=== PATIENT | male | born 1945 | race Caucasian/White ===

== ENCOUNTER 2016-05-28 09:31 | Outpatient (CLI) | payer MEDICARE ==
[2016-05-28 10:17] LABS: #Basophils 0.1 thou/uL (0.0-0.2); #Eosinphils 0.1 thou/uL (0.0-0.7); #Lymphocytes 1.3 thou/uL (1.20-3.40); #Monocytes 0.7 thou/uL (0.11-0.59); #Neutrophils 4.8 thou/uL (1.40-6.50); %Lymphocytes 18.7 % (21.0-51.0); %Monocytes 10.5 % (0.0-10.0); Hematocrit 48.6 % (42.0-52.0); Mean Platelet Volume 8.3 fL (7.4-10.4); Red Blood Cell (RBC) Count 5.28 mill/uL (4.70-6.10); White Blood Cell (WBC) Count 7.1 thou/uL (4.8-10.8)
[2016-05-28 10:25] LABS: ALT (SGPT) 14 U/L (0-55); AST (SGOT) 15 U/L (5-34); Alkaline Phosphatase 76 U/L (40-150); Anion Gap 16 mmol/L (10-20); BUN (Urea Nitrogen) 24 mg/dL (8.4-25.7); Bilirubin, Total 0.9 mg/dL (0.2-1.2); Calc. Creatinine Clearance 0 mL/min (70-130); Calcium 9.3 mg/dL (7.8-10.44); Carbon Dioxide 23 mmol/L (23-31); Chloride 106 mmol/L (98-107); Estimated GFR-MDRD 57; Globulin 2.9 g/dL (2.4-3.5); Protein, Total 7.2 g/dL (5.8-8.1)
[2016-05-28 11:13] LABS: Hemoglobin A1c 5.7 % (4.0-6.0)
[2016-05-28 16:48] LABS: Sex Hormone Binding Globulin 36.4 nmol/L (11-78); Testosterone, Total 500.7 ng/dL (221-716)
== END 2016-05-28 09:32 | disposition home or self-care (01) ==
LOC: NAV LAB 09:31
PROVIDERS: ATTEND Internal Medicine Endocrinology, Diabetes & Metabolism
DX: E03.9 Hypothyroidism, unspecified (principal); E55.9 Vitamin D deficiency, unspecified; E78.2 Mixed hyperlipidemia; E29.1 Testicular hypofunction; E11.9 Type 2 diabetes mellitus without complications
CPT/HCPCS: 80053; 82306; 82672; 83036; 84270; 84403; 84439; 84443; 85025

== ENCOUNTER 2016-09-30 10:20 | Outpatient (CLI) | payer MEDICARE ==
[2016-09-30 11:25] LABS: Hemoglobin A1c 5.8 % (4.0-6.0)
[2016-09-30 11:26] LABS: ALT (SGPT) 8 U/L (8-55); AST (SGOT) 15 U/L (5-34); Albumin 4.1 g/dL (3.4-4.8); Alkaline Phosphatase 77 U/L (40-150); Anion Gap 13 mmol/L (10-20); BUN (Urea Nitrogen) 22 mg/dL (8.4-25.7); Bilirubin, Total 1.1 mg/dL (0.2-1.2); Calc. Creatinine Clearance 0 mL/min (70-130); Calcium 9.5 mg/dL (7.8-10.44); Carbon Dioxide 26 mmol/L (23-31); Cardiac Risk 2.7 (Less than 4.5); Chloride 104 mmol/L (98-107); Cholesterol 90 mg/dl (< 200 Desired); Estimated GFR-MDRD 53; Globulin 3.1 g/dL (2.4-3.5); Glucose 108 mg/dL (83-110); HDL Cholesterol 33 mg/dL (>60 Neg Risk); LDL Cholesterol, Calculated 44 mg/dL; Potassium 4.8 mmol/L (3.5-5.1); Protein, Total 7.2 g/dL (5.8-8.1); Sodium 138 mmol/L (136-145); Triglycerides 64 mg/dL (Less than 150)
[2016-09-30 12:22] LABS: Free T4 (Free Thyroxine) 1.14 ng/dL (0.70-1.48); Thyroid Stimulating Hormone 1.6012 uIU/mL (0.35-4.94); Vitamin D, 25 Hydroxy 44.9 ng/ml (> 30.0)
[2016-09-30 17:30] LABS: Creatinine, Urine 117.71 mg/dL (63-166); Microalbumin Urine 2.3 mg/dL (0.5-50.0); Microalbumin/Creat Ratio 19.5 mg/g (Less than 30)
[2016-09-30 17:33] LABS: Albumin (w/Testosterone Panel) 4.1 g/dL
[2016-09-30 17:59] LABS: Sex Hormone Binding Globulin 32.1 nmol/L (11-78); Testosterone, Free 117.7 pg/mL (47-244); Testosterone, Total 532.1 ng/dL (221-716)
== END 2016-09-30 10:21 | disposition home or self-care (01) ==
LOC: NAV LAB 10:20
PROVIDERS: ATTEND Internal Medicine Endocrinology, Diabetes & Metabolism
DX: E03.9 Hypothyroidism, unspecified (principal); E11.9 Type 2 diabetes mellitus without complications; E78.2 Mixed hyperlipidemia; E29.1 Testicular hypofunction; E55.9 Vitamin D deficiency, unspecified
CPT/HCPCS: 36415; 80053; 80061; 82043; 82306; 82672; 83036; 84270; 84403; 84439; 84443

== ENCOUNTER 2017-05-28 18:48 | Emergency (ER) | payer MEDICARE ==
[2017-05-28] MEDS ORDERED: Famotidine/PF 20 mg/2ml Vial ONE (19:29)
[2017-05-28] MEDS ORDERED: Ondansetron HCl/PF 4 MG/2 ML Vial ONE (19:29)
[2017-05-28 19:40] LABS: #Basophils 0.1 thou/uL (0.0-0.2); #Eosinphils 0.3 thou/uL (0.0-0.7); #Lymphocytes 1.1 thou/uL (1.20-3.40); #Monocytes 0.8 thou/uL (0.11-0.59); %Basophils 1.2 % (0.0-1.0); %Eosinophils 2.8 % (0.0-10.0); %Lymphocytes 11.8 % (21.0-51.0); %Monocytes 9.1 % (0.0-10.0); %Neutrophils 75.2 % (42.0-75.0); Hemoglobin 13.9 g/dL (14.0-18.0); Mean Corpuscular HGB CONC 32.3 g/dL (32.0-36.0); Mean Corpuscular Volume 86.9 fl (80.0-94.0); Mean Platelet Volume 10.6 fL (7.4-10.4); Platelet Count 153 thou/uL (130-400); RBC Distribution Width 12.2 % (11.5-14.5); Red Blood Cell (RBC) Count 4.95 mill/uL (4.70-6.10); White Blood Cell (WBC) Count 9.3 thou/uL (4.8-10.8)
[2017-05-28 19:55] LABS: Anion Gap 16 mmol/L (10-20); BUN (Urea Nitrogen) 23 mg/dL (8.4-25.7); Calc. Creatinine Clearance 0 mL/min (70-130); Calcium 9.1 mg/dL (7.8-10.44); Carbon Dioxide 22 mmol/L (23-31); Chloride 104 mmol/L (98-107); Estimated GFR-MDRD 61; Glucose 140 mg/dL (83-110); Potassium 4.6 mmol/L (3.5-5.1); Sodium 137 mmol/L (136-145)
[2017-05-28 19:56] LABS: CKMB 0.9 ng/mL (0-6.6); Troponin I 0.016 ng/mL (< 0.028)
[2017-05-28 20:11] LABS: Bilirubin Negative (Negative); Blood, Urine Trace (Negative); Clarity Clear (Clear); Glucose, Urine (Dipstick) Negative (Negative); Leukocyte Negative (Negative); Nitrite Negative (Negative); Protein, Urine (Dipstick) 100 mg/dL (Neg-Trace); Specific Gravity, Urine 1.025 (1.005-1.030); Urobilinogen 0.2 mg/dL (0.2-1.0); pH, Urine 5.5 (5.0-9.0)
[2017-05-28] MEDS ORDERED: Lidocaine Viscous Sol 2% 15 ml UD Cup ONE (20:11)
[2017-05-28] MEDS ORDERED: Mag-Al Plus 1200 MG/1200 MG/120 MG/30 ML UDCUP ONE (20:11)
--- NOTE | 2017-05-28 20:13 | RAD ---
PORTABLE AP CHEST RADIOGRAPH: History: Generalized weakness, dyspnea. Upset stomach for several weeks. Comparison: 11-24-09 FINDINGS: Dual-lead left subclavian AICD device remains in place. There have been interval post-surgical change s with evidence of CABG on today's exam. Cardiac silhouette is magnified by projection. Pulmonary vas culature also is accentuated by the depth of inspiration and portable technique. There is mild elevat ion of the right hemidiaphragm. Lungs are otherwise clear. There is mild widening of the right acromi oclavicular joint space and distal right clavicle is slightly elevated superiorly. This could be rela sharif to acromioclavicular injury of indeterminate age. IMPRESSION: 1. No acute cardiopulmonary process. 2. Mild elevation of the right hemidiaphragm. 3. Findings likely related to acromioclavicular joint separation of unknown time frame. POS: [facility]
[2017-05-28 20:25] LABS: RBC/HPF 0-3 HPF (0-3); Squamous Epithelial 0-3 HPF (0-3)
== END 2017-05-28 21:00 | disposition home or self-care (01) ==
LOC: NAV ERS 18:48
DX: R53.1 Weakness (principal); I25.10 Atherosclerotic heart disease of native coronary artery without angina pectoris; I25.2 Old myocardial infarction; E11.9 Type 2 diabetes mellitus without complications; E03.9 Hypothyroidism, unspecified; K21.9 Gastro-esophageal reflux disease without esophagitis; E78.2 Mixed hyperlipidemia; I10 Essential (primary) hypertension; J45.909 Unspecified asthma, uncomplicated; Z79.02 Long term (current) use of antithrombotics/antiplatelets; Z79.899 Other long term (current) drug therapy
CPT/HCPCS: 36416; 71045; 80048; 81003; 81015; 82553; 83605; 83880; 84484; 85025; 85379; 93005; 96374; 96375; 36415-59; J2405; S0028

== ENCOUNTER 2019-05-28 14:33 | Emergency (ER) | payer MEDICARE ==
[2019-05-28] MEDS ORDERED: cefTRIAXone\\ROCEPHIN 2 GM VIAL ONE (15:08)
[2019-05-28] MEDS ORDERED: Sodium Chloride 0.9% 2,000 ML ONE (15:08)
[2019-05-28] MEDS ORDERED: Sodium Chloride 0.9% 100 ML ONE (15:08)
[2019-05-28 15:13] LABS: #Basophils 0.1 thou/uL (0.0-0.2); #Lymphocytes 0.4 thou/uL (1.20-3.40); #Monocytes 0.7 thou/uL (0.11-0.59); #Neutrophils 5.9 thou/uL (1.40-6.50); %Basophils 0.9 % (0.0-1.0); %Eosinophils 0.2 % (0.0-10.0); %Lymphocytes 6.3 % (21.0-51.0); %Monocytes 9.5 % (0.0-10.0); %Neutrophils 83.1 % (42.0-75.0); Mean Corpuscular HGB CONC 31.7 g/dL (32.0-36.0); Mean Corpuscular Hemoglobin 29.7 pg (27.0-31.0); Mean Corpuscular Volume 93.5 fL (78.0-98.0); Mean Platelet Volume 9.2 fL (7.4-10.4); Platelet Count 160 thou/uL (130-400); RBC Distribution Width 12.9 % (11.5-14.5); Red Blood Cell (RBC) Count 4.37 mill/uL (4.70-6.10); White Blood Cell (WBC) Count 7.1 thou/uL (4.8-10.8)
[2019-05-28 15:25] LABS: ALT (SGPT) 10 U/L (8-55); AST (SGOT) 26 U/L (5-34); Albumin 4.1 g/dL (3.4-4.8); Alkaline Phosphatase 111 U/L (40-110); Anion Gap 18 mmol/L (10-20); BUN (Urea Nitrogen) 18 mg/dL (8.4-25.7); Calc. Creatinine Clearance 0 mL/min (70-130); Calcium 8.9 mg/dL (7.8-10.44); Carbon Dioxide 25 mmol/L (23-31); Chloride 101 mmol/L (98-107); Estimated GFR-MDRD 59; Globulin 3.2 g/dL (2.4-3.5); Glucose 166 mg/dL (83-110); Potassium 4.9 mmol/L (3.5-5.1); Protein, Total 7.3 g/dL (5.8-8.1); Sodium 139 mmol/L (136-145)
--- NOTE | 2019-05-28 15:30 | RAD ---
CHEST ONE VIEW: 05/28/19 HISTORY: Fever and cough. COMPARISON: 05/07/17 FINDINGS: Heart size is enlarged. Lungs are hypoinflated. There is vascular crowding. Atelectatic changes of terese th lung bases. AICD/pacer is similar. Multiple midline sternotomy wires. IMPRESSION: Similar exam. No evidence for pneumonia. POS: [facility]
--- NOTE | 2019-05-28 15:32 | RAD ---
XR Hip Rt 2-3 View INDICATION: Right hip pain after fall COMPARISON: None FINDINGS: Bones: No acute osseous abnormality. Bone mineralization appears within normal limits. 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 Surrounding soft tissues: There is mild vascular calcification involving the right hip soft tissues IMPRESSION: 1. No acute osseous abnormality.
[2019-05-28 15:45] LABS: CKMB 0.4 ng/mL (0-6.6)
[2019-05-28] MEDS ORDERED: Azithromycin 500 MG VIAL ONE (15:45)
[2019-05-28] MEDS ORDERED: Sodium Chloride 0.9% 250 ML 250 ML ONE (15:45)
--- NOTE | 2019-05-28 15:56 | CT ---
CT BRAIN WITHOUT CONTRAST: 05/28/19 HISTORY: Fall. 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 There are changes of chronic small vessel ische bert disease in the periventricular white matter. The ventricular size is appropriate and the basilar cisterns patent. Dural calcifications are present. No evidence of acute hemorrhage, midline shift, or abnormal extra-axial fluid collections are noted. The bony calvarium is intact. The visualized paranasal sinuses and mastoid air cells are well aerated . IMPRESSION: No CT evidence of acute intracranial process. POS: [facility]
[2019-05-28] MEDS ORDERED: Acetaminophen 500 MG TAB ONE (16:12)
[2019-05-28] MEDS ORDERED: Oseltamivir 6 MG/ML ORAL SUSP ONE (16:22)
[2019-05-28 17:13] LABS: Bilirubin Negative (Negative); Blood, Urine Moderate (Negative); Glucose, Urine (Dipstick) Negative (Negative); Leukocyte Negative (Negative); Nitrite Negative (Negative); Protein, Urine (Dipstick) 100 mg/dL (Neg-Trace); Urobilinogen 0.2 mg/dL (Less than 2)
[2019-05-28 17:21] LABS: Clarity SL HAZY (Clear)
[2019-05-28 17:23] LABS: Squamous Epithelial 0-3 HPF (0-3); WBC/HPF 0-3 HPF (0-3)
== END 2019-05-28 17:12 | disposition short-term general hospital (02) ==
LOC: NAV ERS 14:33
DX: J10.1 Influenza due to other identified influenza virus with other respiratory manifestations (principal); I11.0 Hypertensive heart disease with heart failure; I50.9 Heart failure, unspecified; G20 Parkinson's disease; R79.89 Other specified abnormal findings of blood chemistry; E78.2 Mixed hyperlipidemia; K21.9 Gastro-esophageal reflux disease without esophagitis; J45.909 Unspecified asthma, uncomplicated; F41.9 Anxiety disorder, unspecified; F32.9 Major depressive disorder, single episode, unspecified; G62.9 Polyneuropathy, unspecified; E03.9 Hypothyroidism, unspecified; E11.9 Type 2 diabetes mellitus without complications; Z87.891 Personal history of nicotine dependence
CPT/HCPCS: 36415; 51701; 70450; 71045; 80053; 81003; 81015; 82553; 83605; 83880; 84484; 85025; 87040; 87086; 87804; 96360; 96361; 96365; 96375; J0456; J0696; J3490; J7050

== ENCOUNTER 2019-07-16 16:55 | Outpatient (CLI) | payer MEDICARE ==
--- NOTE | 2019-07-16 17:55 | RAD ---
THREE VIEWS OF THE LUMBAR SPINE: 07/16/19 COMPARISON: None. HISTORY: Low back pain. FINDINGS: Pedicles appear intact on the frontal imaging. The lateral exam is limited by rotation. No obvious fr acture. No anterolisthesis or retrolisthesis. There is atherosclerotic calcification of the abdomina l aorta. IMPRESSION: No acute osseous abnormality. Please note that the study is significantly limited secondary to rotati on on the lateral view. POS: [facility]
== END 2019-07-16 16:56 | disposition home or self-care (01) ==
LOC: NAV RAD 16:55
PROVIDERS: ATTEND Family Medicine
DX: M54.5 Low back pain (principal)
CPT/HCPCS: 72100

== ENCOUNTER 2020-07-09 21:37 | Inpatient (IN) | payer MEDICARE ==
[2020-07-09 23:05] VITALS: BMI 26.9
[2020-07-09] MEDS ORDERED: Albuterol 200 PUFF (6.7GM INHALER) INH PRN (23:05)
[2020-07-09] MEDS ORDERED: HumaLOG 300 UNITS/3 ML VIAL SC PRN (23:15)
[2020-07-09] MEDS ORDERED: Dextrose 5% in Water 1,000 ML IV PRN (23:15)
[2020-07-09] MEDS ORDERED: Dextrose 50% Abboject 50 ML SYRINGE IVP PRN (23:15)
[2020-07-10] MEDS: Levothyroxine Sodium 75 MCG TAB PO SCH (05:17)
[2020-07-10 05:50] LABS: Anion Gap 13 mmol/L (10-20); BUN (Urea Nitrogen) 27 mg/dL (8.4-25.7); Calc. Creatinine Clearance 55 mL/min (70-130); Calcium 8.5 mg/dL (7.8-10.44); Carbon Dioxide 30 mmol/L (23-31); Chloride 99 mmol/L (98-107); Glucose 190 mg/dL (83-110); Potassium 3.5 mmol/L (3.5-5.1); Sodium 138 mmol/L (136-145)
[2020-07-10 05:52] LABS: #Basophils 0.1 thou/uL (0.0-0.2); #Lymphocytes 1.4 thou/uL (1.20-3.40); #Monocytes 0.8 thou/uL (0.11-0.59); #Neutrophils 4.4 thou/uL (1.40-6.50); %Basophils 1.9 % (0.0-1.0); %Eosinophils 0.2 % (0.0-10.0); %Lymphocytes 20.6 % (21.0-51.0); %Monocytes 11.3 % (0.0-10.0); Anisocytosis SLIGHT = 6-15 cells (100X) (0-5/hpf); Hemoglobin 15.2 g/dL (14.0-18.0); Hypochromia SLIGHT = 6-15 cells (100X) (0-5/hpf); MDiff Complete? YES; Macrocytosis SLIGHT = 6-15 cells (100X) (0-5/hpf); Mean Corpuscular HGB CONC 28.6 g/dL (32.0-36.0); Mean Corpuscular Hemoglobin 27.4 pg (27.0-31.0); Mean Corpuscular Volume 95.5 fL (78.0-98.0); Mean Platelet Volume 9.9 fL (7.4-10.4); Platelet Count 151 thou/uL (130-400); Platelet Morphology Comment Appears Adequate; Polychromasia SLIGHT = 2-3 cells (100X) (0-2/hpf); RBC Distribution Width 14.2 % (11.5-14.5); Red Blood Cell (RBC) Count 5.55 mill/uL (4.70-6.10); White Blood Cell (WBC) Count 6.6 thou/uL (4.8-10.8)
[2020-07-10] MEDS ORDERED: Lisinopril 5 MG TAB PO SCH (09:00)
[2020-07-10] MEDS: metFORMIN 500 MG TAB PO SCH ×2 (10:12→21:56)
[2020-07-10] MEDS: Carbidopa/Levodopa 25-100 mg Tablet PO SCH ×3 (10:13→21:56)
[2020-07-10] MEDS: Carvedilol 6.25 MG TAB PO SCH ×2 (10:13→21:55)
[2020-07-10] MEDS: Mometasone/Formoterol 60 PUFF AER INH SCH ×2 (10:52→21:57)
[2020-07-10] MEDS: Loratadine 10 MG TAB PO SCH (12:15)
[2020-07-10] MEDS: Rosuvastatin 10 MG TAB PO SCH (12:16)
[2020-07-10] MEDS: Torsemide 20 MG TAB PO SCH (12:16)
[2020-07-10] MEDS: Aspirin 81 mg Enteric Coated Tablet PO SCH (12:16)
[2020-07-10] MEDS: Alogliptin 6.25 MG TAB PO SCH ×2 (12:16→21:55)
[2020-07-10] MEDS: Primidone 50 MG TAB PO SCH (12:17)
[2020-07-10] MEDS: Clopidogrel Bisulfate 75 MG TAB PO SCH (12:18)
[2020-07-10] MEDS: HumaLOG 300 UNITS/3 ML VIAL SC PRN ×2 (12:19→17:40)
[2020-07-10] MEDS: Saccharomyces boulardii 250 MG CAP PO SCH (12:19)
[2020-07-10] MEDS: Sacubitril 49 MG/Valsartan 51 MG TABLET PO SCH (21:57)
[2020-07-11] MEDS: Levothyroxine Sodium 75 MCG TAB PO SCH (05:18)
[2020-07-11] MEDS: Primidone 50 MG TAB PO SCH (08:35)
[2020-07-11] MEDS: metFORMIN 500 MG TAB PO SCH ×2 (08:36→21:14)
[2020-07-11] MEDS: Saccharomyces boulardii 250 MG CAP PO SCH (08:36)
[2020-07-11] MEDS: Clopidogrel Bisulfate 75 MG TAB PO SCH (08:36)
[2020-07-11] MEDS: Loratadine 10 MG TAB PO SCH (08:37)
[2020-07-11] MEDS: Sacubitril 49 MG/Valsartan 51 MG TABLET PO SCH ×2 (08:37→21:16)
[2020-07-11] MEDS: Rosuvastatin 10 MG TAB PO SCH (08:37)
[2020-07-11] MEDS: Alogliptin 6.25 MG TAB PO SCH ×2 (08:37→21:14)
[2020-07-11] MEDS: Carbidopa/Levodopa 25-100 mg Tablet PO SCH ×3 (08:37→21:15)
[2020-07-11] MEDS: Torsemide 20 MG TAB PO SCH (08:38)
[2020-07-11] MEDS: Mometasone/Formoterol 60 PUFF AER INH SCH ×2 (08:38→21:15)
[2020-07-11] MEDS: Aspirin 81 mg Enteric Coated Tablet PO SCH (08:38)
[2020-07-11] MEDS: Carvedilol 6.25 MG TAB PO SCH ×2 (08:39→21:15)
[2020-07-11] MEDS: HumaLOG 300 UNITS/3 ML VIAL SC PRN ×2 (12:21→17:12)
[2020-07-12] MEDS: Levothyroxine Sodium 75 MCG TAB PO SCH (05:32)
[2020-07-12 07:55] LABS: #Basophils 0.1 thou/uL (0.0-0.2); #Lymphocytes 1.4 thou/uL (1.20-3.40); #Monocytes 0.8 thou/uL (0.11-0.59); #Neutrophils 4.8 thou/uL (1.40-6.50); %Basophils 1.4 % (0.0-1.0); %Eosinophils 0.3 % (0.0-10.0); %Lymphocytes 19.7 % (21.0-51.0); %Monocytes 11.3 % (0.0-10.0); %Neutrophils 67.3 % (42.0-75.0); Hemoglobin 14.5 g/dL (14.0-18.0); Mean Corpuscular HGB CONC 29.2 g/dL (32.0-36.0); Mean Corpuscular Hemoglobin 27.6 pg (27.0-31.0); Mean Corpuscular Volume 94.4 fL (78.0-98.0); Mean Platelet Volume 8.5 fL (7.4-10.4); Platelet Count 134 thou/uL (130-400); RBC Distribution Width 13.8 % (11.5-14.5); Red Blood Cell (RBC) Count 5.24 mill/uL (4.70-6.10); White Blood Cell (WBC) Count 7.1 thou/uL (4.8-10.8)
[2020-07-12 08:13] LABS: ALT (SGPT) 35 U/L (8-55); AST (SGOT) 24 U/L (5-34); Albumin 2.9 g/dL (3.4-4.8); Alkaline Phosphatase 121 U/L (40-110); Anion Gap 13 mmol/L (10-20); BUN (Urea Nitrogen) 20 mg/dL (8.4-25.7); Bilirubin, Total 0.9 mg/dL (0.2-1.2); Calc. Creatinine Clearance 63 mL/min (70-130); Calcium 8.2 mg/dL (7.8-10.44); Carbon Dioxide 28 mmol/L (23-31); Chloride 98 mmol/L (98-107); Glucose 134 mg/dL (83-110); Potassium 3.4 mmol/L (3.5-5.1); Protein, Total 5.9 g/dL (5.8-8.1); Sodium 136 mmol/L (136-145)
[2020-07-12] MEDS: metFORMIN 500 MG TAB PO SCH ×2 (08:58→21:38)
[2020-07-12] MEDS: Saccharomyces boulardii 250 MG CAP PO SCH (09:01)
[2020-07-12] MEDS: Aspirin 81 mg Enteric Coated Tablet PO SCH (09:01)
[2020-07-12] MEDS: Loratadine 10 MG TAB PO SCH (09:01)
[2020-07-12] MEDS: Torsemide 20 MG TAB PO SCH (09:01)
[2020-07-12] MEDS: Alogliptin 6.25 MG TAB PO SCH ×2 (09:01→21:37)
[2020-07-12] MEDS: Rosuvastatin 10 MG TAB PO SCH (09:01)
[2020-07-12] MEDS: Primidone 50 MG TAB PO SCH (09:02)
[2020-07-12] MEDS: Carbidopa/Levodopa 25-100 mg Tablet PO SCH ×3 (09:02→21:37)
[2020-07-12] MEDS: Clopidogrel Bisulfate 75 MG TAB PO SCH (09:02)
[2020-07-12] MEDS: Mometasone/Formoterol 60 PUFF AER INH SCH ×2 (09:03→21:38)
[2020-07-12] MEDS: Carvedilol 6.25 MG TAB PO SCH ×2 (09:03→21:38)
[2020-07-12] MEDS: Sacubitril 49 MG/Valsartan 51 MG TABLET PO SCH ×2 (09:04→21:39)
[2020-07-12] MEDS: HumaLOG 300 UNITS/3 ML VIAL SC PRN ×2 (12:38→17:51)
[2020-07-13] MEDS: Levothyroxine Sodium 75 MCG TAB PO SCH (05:36)
[2020-07-13] MEDS: Mometasone/Formoterol 60 PUFF AER INH SCH ×2 (08:55→20:27)
[2020-07-13] MEDS: metFORMIN 500 MG TAB PO SCH ×2 (08:58→20:28)
[2020-07-13] MEDS: Carbidopa/Levodopa 25-100 mg Tablet PO SCH ×3 (08:59→20:29)
[2020-07-13] MEDS: Alogliptin 6.25 MG TAB PO SCH ×2 (08:59→20:29)
[2020-07-13] MEDS: Carvedilol 6.25 MG TAB PO SCH ×2 (08:59→20:25)
[2020-07-13] MEDS: Aspirin 81 mg Enteric Coated Tablet PO SCH (08:59)
[2020-07-13] MEDS ORDERED: Spironolactone 25 MG TAB PO SCH (09:00)
[2020-07-13] MEDS: Clopidogrel Bisulfate 75 MG TAB PO SCH (09:00)
[2020-07-13] MEDS: Loratadine 10 MG TAB PO SCH (09:01)
[2020-07-13] MEDS: Primidone 50 MG TAB PO SCH (09:01)
[2020-07-13] MEDS: Rosuvastatin 10 MG TAB PO SCH (09:02)
[2020-07-13] MEDS: Saccharomyces boulardii 250 MG CAP PO SCH (09:02)
[2020-07-13] MEDS: Sacubitril 49 MG/Valsartan 51 MG TABLET PO SCH ×2 (09:02→20:26)
[2020-07-13] MEDS: Torsemide 20 MG TAB PO SCH (09:03)
[2020-07-13] MEDS: HumaLOG 300 UNITS/3 ML VIAL SC PRN (12:04)
[2020-07-14] MEDS: Levothyroxine Sodium 75 MCG TAB PO SCH (05:50)
[2020-07-14] MEDS: Saccharomyces boulardii 250 MG CAP PO SCH (09:21)
[2020-07-14] MEDS: Primidone 50 MG TAB PO SCH (09:21)
[2020-07-14] MEDS: Mometasone/Formoterol 60 PUFF AER INH SCH ×2 (09:22→20:49)
[2020-07-14] MEDS: Rosuvastatin 10 MG TAB PO SCH (09:22)
[2020-07-14] MEDS: metFORMIN 500 MG TAB PO SCH ×2 (09:23→20:49)
[2020-07-14] MEDS: Aspirin 81 mg Enteric Coated Tablet PO SCH (09:23)
[2020-07-14] MEDS: Alogliptin 6.25 MG TAB PO SCH ×2 (09:23→20:48)
[2020-07-14] MEDS: Carvedilol 6.25 MG TAB PO SCH ×2 (09:24→20:47)
[2020-07-14] MEDS: Carbidopa/Levodopa 25-100 mg Tablet PO SCH ×3 (09:24→20:46)
[2020-07-14] MEDS: Clopidogrel Bisulfate 75 MG TAB PO SCH (09:28)
[2020-07-14] MEDS: Loratadine 10 MG TAB PO SCH (09:29)
[2020-07-14] MEDS: Sacubitril 49 MG/Valsartan 51 MG TABLET PO SCH ×2 (09:30→20:47)
[2020-07-14] MEDS: Torsemide 20 MG TAB PO SCH (09:31)
[2020-07-14] MEDS: HumaLOG 300 UNITS/3 ML VIAL SC PRN (17:54)
[2020-07-15] MEDS: Levothyroxine Sodium 75 MCG TAB PO SCH (05:55)
[2020-07-15] MEDS: Primidone 50 MG TAB PO SCH (10:11)
[2020-07-15] MEDS: Saccharomyces boulardii 250 MG CAP PO SCH (10:13)
[2020-07-15] MEDS: Carvedilol 6.25 MG TAB PO SCH ×2 (10:13→20:42)
[2020-07-15] MEDS: Clopidogrel Bisulfate 75 MG TAB PO SCH (10:13)
[2020-07-15] MEDS: Carbidopa/Levodopa 25-100 mg Tablet PO SCH ×3 (10:13→20:46)
[2020-07-15] MEDS: Loratadine 10 MG TAB PO SCH (10:14)
[2020-07-15] MEDS: Sacubitril 49 MG/Valsartan 51 MG TABLET PO SCH ×2 (10:14→20:47)
[2020-07-15] MEDS: Aspirin 81 mg Enteric Coated Tablet PO SCH (10:14)
[2020-07-15] MEDS: Torsemide 20 MG TAB PO SCH (10:15)
[2020-07-15] MEDS: metFORMIN 500 MG TAB PO SCH ×2 (10:16→20:44)
[2020-07-15] MEDS: Rosuvastatin 10 MG TAB PO SCH (10:16)
[2020-07-15] MEDS: Alogliptin 6.25 MG TAB PO SCH ×2 (10:16→20:45)
[2020-07-15] MEDS: Mometasone/Formoterol 60 PUFF AER INH SCH ×2 (10:17→20:51)
[2020-07-15] MEDS: HumaLOG 300 UNITS/3 ML VIAL SC PRN (17:57)
[2020-07-15] MEDS: Apixaban 5 MG TAB PO SCH (20:49)
[2020-07-16] MEDS: Levothyroxine Sodium 75 MCG TAB PO SCH (06:00)
[2020-07-16] MEDS: metFORMIN 500 MG TAB PO SCH ×2 (08:54→20:49)
[2020-07-16] MEDS: Alogliptin 6.25 MG TAB PO SCH ×2 (08:55→20:48)
[2020-07-16] MEDS: Primidone 50 MG TAB PO SCH (08:55)
[2020-07-16] MEDS: Clopidogrel Bisulfate 75 MG TAB PO SCH (08:56)
[2020-07-16] MEDS: Loratadine 10 MG TAB PO SCH (08:56)
[2020-07-16] MEDS: Apixaban 5 MG TAB PO SCH ×2 (08:56→20:48)
[2020-07-16] MEDS: Carvedilol 6.25 MG TAB PO SCH ×2 (08:59→20:49)
[2020-07-16] MEDS: Rosuvastatin 10 MG TAB PO SCH (08:59)
[2020-07-16] MEDS: Torsemide 20 MG TAB PO SCH (09:01)
[2020-07-16] MEDS: Carbidopa/Levodopa 25-100 mg Tablet PO SCH ×3 (09:03→20:49)
[2020-07-16] MEDS: Saccharomyces boulardii 250 MG CAP PO SCH (09:04)
[2020-07-16] MEDS: Sacubitril 49 MG/Valsartan 51 MG TABLET PO SCH ×2 (09:04→20:50)
[2020-07-16] MEDS: Mometasone/Formoterol 60 PUFF AER INH SCH ×2 (09:05→20:49)
[2020-07-16] MEDS: Aspirin 81 mg Enteric Coated Tablet PO SCH (09:05)
[2020-07-16] MEDS: HumaLOG 300 UNITS/3 ML VIAL SC PRN (12:15)
[2020-07-17] MEDS: Levothyroxine Sodium 75 MCG TAB PO SCH (05:20)
[2020-07-17 06:32] LABS: Anion Gap 15 mmol/L (10-20); BUN (Urea Nitrogen) 14 mg/dL (8.4-25.7); Calc. Creatinine Clearance 70 mL/min (70-130); Calcium 8.2 mg/dL (7.8-10.44); Carbon Dioxide 26 mmol/L (23-31); Chloride 100 mmol/L (98-107); Glucose 106 mg/dL (83-110); Potassium 3.7 mmol/L (3.5-5.1); Sodium 137 mmol/L (136-145)
[2020-07-17 06:59] LABS: #Basophils 0.1 thou/uL (0.0-0.2); #Lymphocytes 1.3 thou/uL (1.20-3.40); #Monocytes 0.6 thou/uL (0.11-0.59); #Neutrophils 4.1 thou/uL (1.40-6.50); %Basophils 1.7 % (0.0-1.0); %Eosinophils 0.2 % (0.0-10.0); %Lymphocytes 21.7 % (21.0-51.0); %Monocytes 10.2 % (0.0-10.0); %Neutrophils 66.1 % (42.0-75.0); Hemoglobin 14.1 g/dL (14.0-18.0); Mean Corpuscular HGB CONC 28.6 g/dL (32.0-36.0); Mean Corpuscular Hemoglobin 26.8 pg (27.0-31.0); Mean Corpuscular Volume 93.6 fL (78.0-98.0); Mean Platelet Volume 9.1 fL (7.4-10.4); Platelet Count 109 thou/uL (130-400); RBC Distribution Width 14.4 % (11.5-14.5); Red Blood Cell (RBC) Count 5.27 mill/uL (4.70-6.10); White Blood Cell (WBC) Count 6.2 thou/uL (4.8-10.8)
[2020-07-17] MEDS: Alogliptin 6.25 MG TAB PO SCH ×2 (08:04→20:51)
[2020-07-17] MEDS: metFORMIN 500 MG TAB PO SCH ×2 (08:04→20:51)
[2020-07-17] MEDS: Loratadine 10 MG TAB PO SCH (08:05)
[2020-07-17] MEDS: Saccharomyces boulardii 250 MG CAP PO SCH (08:05)
[2020-07-17] MEDS: Aspirin 81 mg Enteric Coated Tablet PO SCH (08:05)
[2020-07-17] MEDS: Rosuvastatin 10 MG TAB PO SCH (08:05)
[2020-07-17] MEDS: Torsemide 20 MG TAB PO SCH (08:06)
[2020-07-17] MEDS: Primidone 50 MG TAB PO SCH (08:07)
[2020-07-17] MEDS: Carbidopa/Levodopa 25-100 mg Tablet PO SCH ×3 (08:21→20:52)
[2020-07-17] MEDS: Carvedilol 6.25 MG TAB PO SCH ×2 (08:26→20:52)
[2020-07-17] MEDS: Sacubitril 49 MG/Valsartan 51 MG TABLET PO SCH ×2 (08:27→20:53)
[2020-07-17] MEDS: Apixaban 5 MG TAB PO SCH ×2 (08:27→20:51)
[2020-07-17] MEDS: Mometasone/Formoterol 60 PUFF AER INH SCH ×2 (08:29→20:53)
[2020-07-17] MEDS: Clopidogrel Bisulfate 75 MG TAB PO SCH (08:29)
[2020-07-17] MEDS: HumaLOG 300 UNITS/3 ML VIAL SC PRN (12:18)
[2020-07-18] MEDS: Levothyroxine Sodium 75 MCG TAB PO SCH (05:30)
[2020-07-18 06:07] LABS: #Basophils 0.1 thou/uL (0.0-0.2); #Lymphocytes 1.5 thou/uL (1.20-3.40); #Monocytes 0.8 thou/uL (0.11-0.59); #Neutrophils 4.2 thou/uL (1.40-6.50); %Basophils 1.8 % (0.0-1.0); %Eosinophils 0.2 % (0.0-10.0); %Lymphocytes 22.3 % (21.0-51.0); %Monocytes 11.8 % (0.0-10.0); Hemoglobin 14.5 g/dL (14.0-18.0); Mean Corpuscular HGB CONC 28.8 g/dL (32.0-36.0); Mean Corpuscular Volume 93.8 fL (78.0-98.0); Mean Platelet Volume 8.9 fL (7.4-10.4); Platelet Count 100 thou/uL (130-400); RBC Distribution Width 14.2 % (11.5-14.5); Red Blood Cell (RBC) Count 5.38 mill/uL (4.70-6.10); White Blood Cell (WBC) Count 6.5 thou/uL (4.8-10.8)
[2020-07-18 07:24] VITALS: BP 118/71; TEMP 97.6
[2020-07-18] MEDS: metFORMIN 500 MG TAB PO SCH (08:48)
[2020-07-18] MEDS: Aspirin 81 mg Enteric Coated Tablet PO SCH (08:49)
[2020-07-18] MEDS: Alogliptin 6.25 MG TAB PO SCH (08:49)
[2020-07-18] MEDS: Apixaban 5 MG TAB PO SCH (08:49)
[2020-07-18] MEDS: Carbidopa/Levodopa 25-100 mg Tablet PO SCH (08:49)
[2020-07-18] MEDS: Carvedilol 6.25 MG TAB PO SCH (08:49)
[2020-07-18] MEDS: Clopidogrel Bisulfate 75 MG TAB PO SCH (08:51)
[2020-07-18] MEDS: Mometasone/Formoterol 60 PUFF AER INH SCH (08:52)
[2020-07-18] MEDS: Loratadine 10 MG TAB PO SCH (08:52)
[2020-07-18] MEDS: Saccharomyces boulardii 250 MG CAP PO SCH (08:53)
[2020-07-18] MEDS: Primidone 50 MG TAB PO SCH (08:53)
[2020-07-18] MEDS: Sacubitril 49 MG/Valsartan 51 MG TABLET PO SCH (08:54)
[2020-07-18] MEDS: Rosuvastatin 10 MG TAB PO SCH (08:54)
[2020-07-18] MEDS: Torsemide 20 MG TAB PO SCH (08:55)
== END 2020-07-18 12:30 | disposition home or self-care (01) | DRG 177 ==
LOC: NAV ACUTE 21:37
PROVIDERS: ADMIT Family Medicine; ATTEND Family Medicine
DX: U07.1 COVID-19 (principal); J96.01 Acute respiratory failure with hypoxia; G93.41 Metabolic encephalopathy; J12.82 Pneumonia due to coronavirus disease 2019; N17.9 Acute kidney failure, unspecified; I27.82 Chronic pulmonary embolism; N18.4 Chronic kidney disease, stage 4 (severe); I50.22 Chronic systolic (congestive) heart failure; I13.0 Hypertensive heart and chronic kidney disease with heart failure and stage 1 through stage 4 chronic kidney disease, or unspecified chronic kidney disease; G20 Parkinson's disease; F02.80 Dementia in other diseases classified elsewhere, unspecified severity, without behavioral disturbance, psychotic disturbance, mood disturbance, and anxiety; R53.81 Other malaise; G25.81 Restless legs syndrome; Z79.01 Long term (current) use of anticoagulants; I25.10 Atherosclerotic heart disease of native coronary artery without angina pectoris; E11.22 Type 2 diabetes mellitus with diabetic chronic kidney disease; Z95.1 Presence of aortocoronary bypass graft; Z95.810 Presence of automatic (implantable) cardiac defibrillator
CPT/HCPCS: 36416; 80048; 80053; 83880; 85025; 94664; J1815; J7070

== ENCOUNTER 2020-09-09 14:58 | Inpatient (IN) | payer MEDICARE ==
[2020-09-10] MEDS ORDERED: Acetaminophen 325 MG TAB PO PRN (08:38)
[2020-09-10] MEDS ORDERED: Dextrose 50% Abboject 50 ML SYRINGE SLOW IVP PRN (08:42)
[2020-09-10] MEDS ORDERED: HumaLOG 300 UNITS/3 ML VIAL SC PRN (08:42)
[2020-09-10] MEDS ORDERED: Bisacodyl 5 MG TAB PO PRN (08:43)
[2020-09-10] MEDS ORDERED: Loperamide HCl 2 MG CAP PO PRN ×2 (08:43)
[2020-09-10] MEDS ORDERED: Eucerin (Mineral Oil/Petrolatum,White) 30 gm Jar TOP PRN (08:43)
[2020-09-10] MEDS ORDERED: Artificial Tear Sol 15 ML BOT EA EYE PRN (08:43)
[2020-09-10] MEDS ORDERED: Senokot S 8.6-50 MG TAB PO PRN (08:43)
[2020-09-10] MEDS ORDERED: Bisacodyl 10 MG SUPP PR PRN (08:43)
[2020-09-10] MEDS ORDERED: Calcium Carbonate 500 MG ChewTAB PO PRN (08:43)
[2020-09-10] MEDS ORDERED: cloNIDine 0.1 MG TAB PO PRN (08:43)
[2020-09-10] MEDS ORDERED: Apixaban 5 MG TAB PO SCH (09:00)
[2020-09-10] MEDS ORDERED: Alogliptin 25 MG TAB PO SCH ×2 (09:00→09:15)
[2020-09-10] MEDS ORDERED: metFORMIN 500 MG TAB PO SCH (09:15)
[2020-09-10] MEDS: Mometasone/Formoterol 60 PUFF AER INH SCH ×2 (09:52→21:39)
[2020-09-10] MEDS: Primidone 50 MG TAB PO SCH ×2 (09:53→21:40)
[2020-09-10] MEDS: Clopidogrel Bisulfate 75 MG TAB PO SCH (09:54)
[2020-09-10] MEDS: Rosuvastatin 10 MG TAB PO SCH (09:54)
[2020-09-10] MEDS: Valsartan 80 MG TAB PO SCH ×2 (09:54→21:42)
[2020-09-10] MEDS: Saccharomyces boulardii 250 MG CAP PO SCH (09:54)
[2020-09-10] MEDS: Carbidopa/Levodopa 25-100 mg Tablet PO SCH ×3 (09:54→21:43)
[2020-09-10] MEDS: Torsemide 20 MG TAB PO SCH (09:55)
[2020-09-10] MEDS: Aspirin 81 mg Enteric Coated Tablet PO SCH (09:55)
[2020-09-10] MEDS: Loratadine 10 MG TAB PO SCH (09:55)
[2020-09-10] MEDS: Carvedilol 3.125 MG TAB PO SCH (16:17)
[2020-09-10] MEDS ORDERED: Ventolin HFA Inhaler 60 PUFF INHALER ONE (18:05)
[2020-09-10] MEDS: Ventolin HFA Inhaler 60 PUFF INHALER INH PRN (18:11)
[2020-09-10] MEDS: Apixaban 5 MG TAB PO SCH (21:43)
[2020-09-10] MEDS: metFORMIN 500 MG TAB PO SCH (21:43)
[2020-09-10] MEDS: Alogliptin 25 MG TAB PO SCH (21:43)
[2020-09-11] MEDS: Levothyroxine Sodium 75 MCG TAB PO SCH (06:00)
[2020-09-11] MEDS: Carvedilol 3.125 MG TAB PO SCH ×2 (11:50→17:25)
[2020-09-11] MEDS: Apixaban 5 MG TAB PO SCH ×2 (11:50→21:12)
[2020-09-11] MEDS: Alogliptin 25 MG TAB PO SCH ×2 (11:50→21:12)
[2020-09-11] MEDS: metFORMIN 500 MG TAB PO SCH ×2 (11:50→21:14)
[2020-09-11] MEDS: Carbidopa/Levodopa 25-100 mg Tablet PO SCH ×3 (11:51→21:12)
[2020-09-11] MEDS: Loratadine 10 MG TAB PO SCH (11:51)
[2020-09-11] MEDS: Clopidogrel Bisulfate 75 MG TAB PO SCH (11:51)
[2020-09-11] MEDS: Aspirin 81 mg Enteric Coated Tablet PO SCH (11:51)
[2020-09-11] MEDS: Mometasone/Formoterol 60 PUFF AER INH SCH ×2 (11:51→21:09)
[2020-09-11] MEDS: Torsemide 20 MG TAB PO SCH (11:52)
[2020-09-11] MEDS: Saccharomyces boulardii 250 MG CAP PO SCH (11:52)
[2020-09-11] MEDS: Primidone 50 MG TAB PO SCH ×2 (11:52→21:11)
[2020-09-11] MEDS: Rosuvastatin 10 MG TAB PO SCH (11:52)
[2020-09-11] MEDS: Valsartan 80 MG TAB PO SCH ×2 (11:52→21:13)
[2020-09-12] MEDS: Levothyroxine Sodium 75 MCG TAB PO SCH (06:20)
[2020-09-12] MEDS: Alogliptin 25 MG TAB PO SCH ×2 (09:15→20:57)
[2020-09-12] MEDS: Carvedilol 3.125 MG TAB PO SCH ×2 (09:16→17:39)
[2020-09-12] MEDS: Apixaban 5 MG TAB PO SCH ×2 (09:17→20:55)
[2020-09-12] MEDS: Aspirin 81 mg Enteric Coated Tablet PO SCH (09:17)
[2020-09-12] MEDS: metFORMIN 500 MG TAB PO SCH ×2 (09:17→20:57)
[2020-09-12] MEDS: Clopidogrel Bisulfate 75 MG TAB PO SCH (09:18)
[2020-09-12] MEDS: Carbidopa/Levodopa 25-100 mg Tablet PO SCH ×3 (09:18→20:55)
[2020-09-12] MEDS: Mometasone/Formoterol 60 PUFF AER INH SCH ×2 (09:19→20:58)
[2020-09-12] MEDS: Loratadine 10 MG TAB PO SCH (09:19)
[2020-09-12] MEDS: Primidone 50 MG TAB PO SCH ×2 (09:20→20:56)
[2020-09-12] MEDS: Torsemide 20 MG TAB PO SCH (09:21)
[2020-09-12] MEDS: Valsartan 80 MG TAB PO SCH ×2 (09:21→21:01)
[2020-09-12] MEDS: Saccharomyces boulardii 250 MG CAP PO SCH (09:21)
[2020-09-12] MEDS: Rosuvastatin 10 MG TAB PO SCH (09:21)
[2020-09-12] MEDS: Ventolin HFA Inhaler 60 PUFF INHALER INH PRN (17:44)
[2020-09-13] MEDS: Levothyroxine Sodium 75 MCG TAB PO SCH (05:41)
[2020-09-13] MEDS: Alogliptin 25 MG TAB PO SCH ×2 (08:18→20:54)
[2020-09-13] MEDS: Carvedilol 3.125 MG TAB PO SCH ×2 (08:18→17:56)
[2020-09-13] MEDS: Aspirin 81 mg Enteric Coated Tablet PO SCH (08:19)
[2020-09-13] MEDS: Apixaban 5 MG TAB PO SCH ×2 (08:19→20:54)
[2020-09-13] MEDS: Carbidopa/Levodopa 25-100 mg Tablet PO SCH ×3 (08:19→20:54)
[2020-09-13] MEDS: Clopidogrel Bisulfate 75 MG TAB PO SCH (08:19)
[2020-09-13] MEDS: metFORMIN 500 MG TAB PO SCH ×2 (08:19→20:54)
[2020-09-13] MEDS: Mometasone/Formoterol 60 PUFF AER INH SCH ×2 (08:20→20:56)
[2020-09-13] MEDS: Loratadine 10 MG TAB PO SCH (08:20)
[2020-09-13] MEDS: Valsartan 80 MG TAB PO SCH ×2 (08:21→20:54)
[2020-09-13] MEDS: Primidone 50 MG TAB PO SCH (08:21)
[2020-09-13] MEDS: Torsemide 20 MG TAB PO SCH (08:21)
[2020-09-13] MEDS: Saccharomyces boulardii 250 MG CAP PO SCH (08:21)
[2020-09-13] MEDS: Rosuvastatin 10 MG TAB PO SCH (08:21)
[2020-09-13] MEDS: Primidone 250 MG TAB PO SCH ×2 (08:32→21:41)
[2020-09-14] MEDS: Levothyroxine Sodium 75 MCG TAB PO SCH (05:20)
[2020-09-14] MEDS: Aspirin 81 mg Enteric Coated Tablet PO SCH (08:45)
[2020-09-14] MEDS: Clopidogrel Bisulfate 75 MG TAB PO SCH (08:46)
[2020-09-14] MEDS: Valsartan 80 MG TAB PO SCH ×2 (08:46→20:51)
[2020-09-14] MEDS: Apixaban 5 MG TAB PO SCH ×2 (08:46→20:52)
[2020-09-14] MEDS: Carvedilol 3.125 MG TAB PO SCH ×2 (08:46→16:20)
[2020-09-14] MEDS: Carbidopa/Levodopa 25-100 mg Tablet PO SCH ×3 (08:46→20:52)
[2020-09-14] MEDS: Alogliptin 25 MG TAB PO SCH ×2 (08:47→20:52)
[2020-09-14] MEDS: Loratadine 10 MG TAB PO SCH (08:47)
[2020-09-14] MEDS: Saccharomyces boulardii 250 MG CAP PO SCH (08:47)
[2020-09-14] MEDS: Rosuvastatin 10 MG TAB PO SCH (08:48)
[2020-09-14] MEDS: Torsemide 20 MG TAB PO SCH (08:48)
[2020-09-14] MEDS: metFORMIN 500 MG TAB PO SCH ×2 (08:48→20:51)
[2020-09-14] MEDS: Mometasone/Formoterol 60 PUFF AER INH SCH ×2 (08:49→20:53)
[2020-09-14] MEDS: Primidone 250 MG TAB PO SCH ×2 (08:50→20:53)
[2020-09-15 05:24] LABS: #Basophils 0.1 thou/uL (0.0-0.2); #Eosinphils 0.3 thou/uL (0.0-0.7); #Lymphocytes 1.1 thou/uL (1.20-3.40); #Monocytes 0.8 thou/uL (0.11-0.59); #Neutrophils 5.3 thou/uL (1.40-6.50); %Basophils 1.3 % (0.0-1.0); %Eosinophils 4.3 % (0.0-10.0); %Monocytes 10.6 % (0.0-10.0); %Neutrophils 69.9 % (42.0-75.0); Hemoglobin 14.6 g/dL (14.0-18.0); Mean Corpuscular HGB CONC 30.9 g/dL (32.0-36.0); Mean Corpuscular Hemoglobin 28.3 pg (27.0-31.0); Mean Corpuscular Volume 91.6 fL (78.0-98.0); Mean Platelet Volume 8.9 fL (7.4-10.4); Platelet Count 208 thou/uL (130-400); RBC Distribution Width 18.8 % (11.5-14.5); Red Blood Cell (RBC) Count 5.18 mill/uL (4.70-6.10); White Blood Cell (WBC) Count 7.6 thou/uL (4.8-10.8)
[2020-09-15] MEDS: Levothyroxine Sodium 75 MCG TAB PO SCH (05:27)
[2020-09-15 05:30] LABS: Anion Gap 16 mmol/L (10-20); BUN (Urea Nitrogen) 19 mg/dL (8.4-25.7); Calc. Creatinine Clearance 87 mL/min (70-130); Carbon Dioxide 23 mmol/L (23-31); Chloride 100 mmol/L (98-107); Glucose 109 mg/dL (83-110); Potassium 3.4 mmol/L (3.5-5.1); Sodium 136 mmol/L (136-145)
[2020-09-15] MEDS: Torsemide 20 MG TAB PO SCH (09:28)
[2020-09-15] MEDS: Mometasone/Formoterol 60 PUFF AER INH SCH ×2 (09:28→21:38)
[2020-09-15] MEDS: Saccharomyces boulardii 250 MG CAP PO SCH (09:28)
[2020-09-15] MEDS: Valsartan 80 MG TAB PO SCH ×2 (09:28→21:40)
[2020-09-15] MEDS: Alogliptin 25 MG TAB PO SCH ×2 (09:29→21:39)
[2020-09-15] MEDS: Carvedilol 3.125 MG TAB PO SCH ×2 (09:29→18:27)
[2020-09-15] MEDS: metFORMIN 500 MG TAB PO SCH ×2 (09:29→21:40)
[2020-09-15] MEDS: Loratadine 10 MG TAB PO SCH (09:29)
[2020-09-15] MEDS: Rosuvastatin 10 MG TAB PO SCH (09:29)
[2020-09-15] MEDS: Apixaban 5 MG TAB PO SCH ×2 (09:30→21:39)
[2020-09-15] MEDS: Carbidopa/Levodopa 25-100 mg Tablet PO SCH ×3 (09:30→21:39)
[2020-09-15] MEDS: Clopidogrel Bisulfate 75 MG TAB PO SCH (09:30)
[2020-09-15] MEDS: Aspirin 81 mg Enteric Coated Tablet PO SCH (09:30)
[2020-09-15] MEDS: Primidone 250 MG TAB PO SCH ×2 (09:31→21:39)
[2020-09-15 20:08] LABS: Bilirubin Negative (Negative); Blood, Urine Negative (Negative); Clarity Clear (Clear); Glucose, Urine (Dipstick) Negative (Negative); Ketone, Urine Negative (Negative); Leukocyte Negative (Negative); Nitrite Negative (Negative); Protein, Urine (Dipstick) Negative (Neg-Trace)
[2020-09-16] MEDS: Levothyroxine Sodium 75 MCG TAB PO SCH (05:24)
[2020-09-16] MEDS: Alogliptin 6.25 MG TAB PO SCH (09:17)
[2020-09-16] MEDS: Rosuvastatin 10 MG TAB PO SCH (09:17)
[2020-09-16] MEDS: Apixaban 5 MG TAB PO SCH ×2 (09:18→21:27)
[2020-09-16] MEDS: Carbidopa/Levodopa 25-100 mg Tablet PO SCH ×3 (09:18→21:27)
[2020-09-16] MEDS: Clopidogrel Bisulfate 75 MG TAB PO SCH (09:18)
[2020-09-16] MEDS: Loratadine 10 MG TAB PO SCH (09:18)
[2020-09-16] MEDS: Aspirin 81 mg Enteric Coated Tablet PO SCH (09:18)
[2020-09-16] MEDS: Valsartan 80 MG TAB PO SCH ×2 (09:18→21:28)
[2020-09-16] MEDS: Saccharomyces boulardii 250 MG CAP PO SCH (09:21)
[2020-09-16] MEDS: Mometasone/Formoterol 60 PUFF AER INH SCH ×2 (09:21→21:27)
[2020-09-16] MEDS: Torsemide 20 MG TAB PO SCH (09:21)
[2020-09-16] MEDS: metFORMIN 500 MG TAB PO SCH ×2 (09:21→21:27)
[2020-09-16] MEDS: Primidone 250 MG TAB PO SCH ×2 (09:22→21:26)
[2020-09-16] MEDS: Cepastat Lozenges 1 LOZ PO PRN (21:26)
[2020-09-16] MEDS: Alogliptin 25 MG TAB PO SCH (21:28)
[2020-09-17] MEDS: Levothyroxine Sodium 75 MCG TAB PO SCH (05:33)
[2020-09-17] MEDS: Rosuvastatin 10 MG TAB PO SCH (08:39)
[2020-09-17] MEDS: Cepastat Lozenges 1 LOZ PO PRN (08:40)
[2020-09-17] MEDS: Loratadine 10 MG TAB PO SCH (08:40)
[2020-09-17] MEDS: Saccharomyces boulardii 250 MG CAP PO SCH (08:40)
[2020-09-17] MEDS: Clopidogrel Bisulfate 75 MG TAB PO SCH (08:41)
[2020-09-17] MEDS: Alogliptin 6.25 MG TAB PO SCH (08:41)
[2020-09-17] MEDS: Aspirin 81 mg Enteric Coated Tablet PO SCH (08:41)
[2020-09-17] MEDS: metFORMIN 500 MG TAB PO SCH ×2 (08:43→20:12)
[2020-09-17] MEDS: Apixaban 5 MG TAB PO SCH ×2 (08:43→20:11)
[2020-09-17] MEDS: Carbidopa/Levodopa 25-100 mg Tablet PO SCH ×3 (08:43→20:11)
[2020-09-17] MEDS: Mometasone/Formoterol 60 PUFF AER INH SCH ×2 (08:44→20:12)
[2020-09-17] MEDS: Torsemide 20 MG TAB PO SCH (08:44)
[2020-09-17] MEDS: Primidone 250 MG TAB PO SCH ×2 (10:31→20:09)
[2020-09-17] MEDS: Valsartan 80 MG TAB PO SCH ×2 (10:46→20:11)
[2020-09-17] MEDS: Alogliptin 25 MG TAB PO SCH (20:12)
[2020-09-18] MEDS: Levothyroxine Sodium 75 MCG TAB PO SCH (05:22)
[2020-09-18] MEDS: Alogliptin 6.25 MG TAB PO SCH (08:31)
[2020-09-18] MEDS: Torsemide 20 MG TAB PO SCH (08:32)
[2020-09-18] MEDS: Rosuvastatin 10 MG TAB PO SCH (08:32)
[2020-09-18] MEDS: Aspirin 81 mg Enteric Coated Tablet PO SCH (08:32)
[2020-09-18] MEDS: Carbidopa/Levodopa 25-100 mg Tablet PO SCH ×3 (08:32→20:34)
[2020-09-18] MEDS: Apixaban 5 MG TAB PO SCH ×2 (08:32→20:34)
[2020-09-18] MEDS: metFORMIN 500 MG TAB PO SCH ×2 (08:33→20:34)
[2020-09-18] MEDS: Clopidogrel Bisulfate 75 MG TAB PO SCH (08:33)
[2020-09-18] MEDS: Saccharomyces boulardii 250 MG CAP PO SCH (08:34)
[2020-09-18] MEDS: Loratadine 10 MG TAB PO SCH (08:35)
[2020-09-18] MEDS: Primidone 250 MG TAB PO SCH ×2 (08:35→20:34)
[2020-09-18] MEDS: Mometasone/Formoterol 60 PUFF AER INH SCH ×2 (08:48→20:33)
[2020-09-18] MEDS: Valsartan 80 MG TAB PO SCH ×2 (15:52→20:35)
[2020-09-18] MEDS: Alogliptin 25 MG TAB PO SCH (20:34)
[2020-09-19 03:28] VITALS: BMI 27.6
[2020-09-19] MEDS: Levothyroxine Sodium 75 MCG TAB PO SCH (05:37)
[2020-09-19] MEDS: Loratadine 10 MG TAB PO SCH (08:46)
[2020-09-19] MEDS: Saccharomyces boulardii 250 MG CAP PO SCH (08:46)
[2020-09-19] MEDS: Apixaban 5 MG TAB PO SCH (08:46)
[2020-09-19] MEDS: Torsemide 20 MG TAB PO SCH (08:46)
[2020-09-19] MEDS: Rosuvastatin 10 MG TAB PO SCH (08:47)
[2020-09-19] MEDS: metFORMIN 500 MG TAB PO SCH (08:47)
[2020-09-19] MEDS: Clopidogrel Bisulfate 75 MG TAB PO SCH (08:47)
[2020-09-19] MEDS: Aspirin 81 mg Enteric Coated Tablet PO SCH (08:48)
[2020-09-19] MEDS: Carbidopa/Levodopa 25-100 mg Tablet PO SCH (08:48)
[2020-09-19] MEDS: Alogliptin 6.25 MG TAB PO SCH (08:48)
[2020-09-19] MEDS: Mometasone/Formoterol 60 PUFF AER INH SCH (08:49)
[2020-09-19] MEDS: Primidone 250 MG TAB PO SCH (08:49)
[2020-09-19] MEDS: Valsartan 80 MG TAB PO SCH (08:50)
[2020-09-19 10:32] VITALS: BP 99/67; TEMP 98.3
== END 2020-09-19 10:45 | disposition hospice, home (50) | DRG 293 ==
LOC: NAV ACUTE 17:02
PROVIDERS: ADMIT Family Medicine; ATTEND Family Medicine
DX: I11.0 Hypertensive heart disease with heart failure (principal); R53.1 Weakness; I50.23 Acute on chronic systolic (congestive) heart failure; I25.10 Atherosclerotic heart disease of native coronary artery without angina pectoris; E11.9 Type 2 diabetes mellitus without complications; E78.5 Hyperlipidemia, unspecified; G20 Parkinson's disease; K14.0 Glossitis; K52.9 Noninfective gastroenteritis and colitis, unspecified; R53.81 Other malaise; E03.9 Hypothyroidism, unspecified; K21.9 Gastro-esophageal reflux disease without esophagitis; D69.6 Thrombocytopenia, unspecified; F32.9 Major depressive disorder, single episode, unspecified; K57.90 Diverticulosis of intestine, part unspecified, without perforation or abscess without bleeding; Z95.1 Presence of aortocoronary bypass graft; I25.2 Old myocardial infarction; Z95.5 Presence of coronary angioplasty implant and graft; Z95.810 Presence of automatic (implantable) cardiac defibrillator; Z90.89 Acquired absence of other organs; Z87.891 Personal history of nicotine dependence; Z86.711 Personal history of pulmonary embolism; Z79.01 Long term (current) use of anticoagulants; Z86.16 Personal history of COVID-19
CPT/HCPCS: 36416; 80048; 81003; 85025; J1815